=== PATIENT | female | born 1955 | race Caucasian/White ===

== ENCOUNTER 2019-04-25 16:45 | Emergency (ER) | payer BC ==
[~2019-04-25] VITALS: Ht 162.6 cm; Wt 70.8 kg
[2019-04-25] MEDS ORDERED: [UNRECOGNIZED DRUG - REMARK] (16:58)
[2019-04-25] MEDS ORDERED: DULO60CA45 PO (16:59)
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
[2019-04-25] MEDS ORDERED: IBUPROFEN 800 MG TABLET PO ONE (17:45)
[2019-04-25] MEDS ORDERED: IBUPROFEN 800 MG TABLET ONE (17:51)
--- NOTE | 2019-04-25 19:06 | NUR ---
SHIFT REPORT GIVEN TO LATISHA Cuellar RN.
--- NOTE | 2019-04-25 19:58 | NUR ---
Called [facility], spoke with Misty, for possible transfer for higher level of care. Faxed information to number .
--- NOTE | 2019-04-25 20:06 | NUR ---
Called Dr. Mayorga's office, left a voicemail.
--- NOTE | 2019-04-25 20:14 | NUR ---
Received call from [facility]. Patient accepted for transfer. Accepting MD Dr. Chadwick.
--- NOTE | 2019-04-25 20:23 | NUR ---
Called [facility] for transport of patient to [facility] for higher level of care. ETA 1 hr ~2022.
--- NOTE | 2019-04-25 22:02 | NUR ---
[facility] arrived to ER to transport pt to [facility]. Report and documentation given to EMT.
--- NOTE | 2019-04-25 22:14 | NUR ---
Report given to Alonso CHRISTIANSON [facility].
== END 2019-04-25 22:16 | disposition short-term general hospital (02) ==
LOC: ER 16:45
DX: S12.400A Unspecified displaced fracture of fifth cervical vertebra, initial encounter for closed fracture (principal); S39.012A Strain of muscle, fascia and tendon of lower back, initial encounter; Z79.899 Other long term (current) drug therapy; V49.9XXA Car occupant (driver) (passenger) injured in unspecified traffic accident, initial encounter; Y93.89 Activity, other specified; Y92.410 Unspecified street and highway as the place of occurrence of the external cause; Y99.8 Other external cause status
CPT/HCPCS: 72125; 72131; A4663

== ENCOUNTER 2022-05-29 14:44 | Inpatient (IN) | payer MEDICARE, BC ==
[~2022-05-29] VITALS: Ht 162.6 cm; Wt 78.9 kg
[~2022-05-29 14:44] MED LIST: DULO60CA45 PO; [UNRECOGNIZED DRUG - REMARK]
--- NOTE | 2022-05-29 14:59 | NUR ---
MD at bedside for evaluation
[2022-05-29] MEDS ORDERED: IV NORMAL SALINE 500 ML BAG IV ONE (15:15)
[2022-05-29 15:35] LABS: HEMATOCRIT 38.6 % (31.2-41.9); MEAN CORPUSCULAR HEMOGLOBIN 30.7 uug (24.7-32.8); MEAN CORPUSCULAR VOLUME 94.3 fL (75.5-95.3); PLATELET COUNT (AUTO) 261 K/uL (179-408)
[2022-05-29 15:42] LABS: CARBON DIOXIDE 30 mmol/L (21-32); CHLORIDE 106 mmol/L (98-107); CREATININE 0.9 mg/dL (0.6-1.3); GLUCOSE 121 mg/dL (74-106); UREA NITROGEN, BLOOD 12 mg/dL (7-18)
[2022-05-29 15:53] LABS: ALANINE AMINOTRANSFERASE 28 U/L (14-59); ALKALINE PHOSPHATASE 61 U/L (50-136); ASPARTATE AMINOTRANSFERASE 14 U/L (15-37); BILIRUBIN,DIRECT 0.2 mg/dL (0.0-0.2); BILIRUBIN,TOTAL 0.9 mg/dL (0.2-1.0); LIPASE 71 U/L (73-393); TOTAL PROTEIN, SERUM 6.4 g/dL (6.4-8.2)
[2022-05-29] MEDS ORDERED: POTASSIUM CHLORIDE 20 MEQ TAB.PRT.SR PO ONE (16:30)
[2022-05-29] MEDS ORDERED: POTASSIUM CHLORIDE 20 MEQ TAB.PRT.SR ONE (16:41)
[2022-05-29] MEDS ORDERED: IV NS 1000 ML 1,000 ML IV ONE (16:45)
[2022-05-29] MEDS ORDERED: ACETAMINOPHEN 325 MG TABLET PO PRN (17:15)
[2022-05-29] MEDS ORDERED: MAGNESIUM HYDROXIDE 30 ML LIQUID UDC PO PRN (17:15)
[2022-05-29] MEDS ORDERED: ONDANSETRON 4 MG/2 ML VIAL IV PRN (17:15)
--- NOTE | 2022-05-29 19:20 | NUR ---
Transfered to 3rd floor via wheelchair by nursing pressroom supervisor to Tele floor.
--- NOTE | 2022-05-29 20:00 | NUR ---
Admitted a 66 years old patient with Dx of Syncope. Patient AAOx4. In no apparent distress. Denies any pain or SOB. IV site on right AC was irritating patient and requesting to get a new IV. New IV started on right wrist area #22G. NSR on tele with HR of 80/min. Routine admission care done. Plan of care initiated. Safety measure initiated and geoff light within reached.
[2022-05-29] MEDS: IV NS 1000 ML 1,000 ML IV PRN (20:21)
[2022-05-29 20:41] VITALS: BP 141/78
--- NOTE | 2022-05-30 00:04 | NUR ---
Patient requesting medication for sleep. Patient takes Xanax at home but forgot what dose she takes. Informed Dr. Johnson and ordered Trazodone 100mg PO at HS for sleep. Order noted and will carry out.
[2022-05-30 00:13] VITALS: BP 118/68
[2022-05-30] MEDS ORDERED: TRAZODONE 100 MG TABLET PO SCH (00:15)
--- NOTE | 2022-05-30 05:20 | NUR ---
patient slept well after taking Trazodone 100mg PO. Denies any pain or SOB. IV site on right wrist area intact and patent. IVF infusing. Denies any syncopal or fainting episode. Assisted to toilet PRN. NSR on tele with HR of 66/min. Needs attended to and met. Safety measure maintained and call light within reached.
[2022-05-30 05:34] VITALS: BP 124/69
[2022-05-30 05:51] LABS: HEMATOCRIT 34.9 % (31.2-41.9); MEAN CORPUSCULAR HEMOGLOBIN 31.5 uug (24.7-32.8); MEAN CORPUSCULAR VOLUME 93.6 fL (75.5-95.3); PLATELET COUNT (AUTO) 196 K/uL (179-408)
[2022-05-30 06:04] LABS: CREATININE 0.8 mg/dL (0.6-1.3); MAGNESIUM 1.8 mg/dL (1.8-2.4); PHOSPHOROUS 3.6 mg/dL (2.5-4.9)
[2022-05-30 07:00] VITALS: BP 124/69
--- NOTE | 2022-05-30 07:45 | NUR ---
RECEIVED P[ATIENT IN BED AWAKE ALERT AND ORIENTED DENIES PAIN OR DISCOMFORTS AT THIS TIME REMAIN ON IVF ORDERED WITH NO S/S OF INFILTERATION ON SITE CALL LIGHTS AND HER PERSONAL BELONGINGS ARE WITHIN EASY REACH AT THIS TIME WILL CONTINUE TO OBSERVE
--- NOTE | 2022-05-30 08:05 | NUR ---
DR HILLS HERE AND SEEN PATIENT WITH NO NEW ORDERS AT THIS TIME
--- NOTE | 2022-05-30 10:05 | NUR ---
SEEN BY THE PHYSICAL THERAPY FOR AMBULATION WITH THE FRONT WHEEL WALKER WITH GOOD ENDURANCE
[2022-05-30] MEDS: IV NS 1000 ML 1,000 ML IV PRN (11:10)
[2022-05-30 12:12] VITALS: BP 118/78
--- NOTE | 2022-05-30 13:00 | NUR ---
PATIENT SEEN BY NATALIYA BANKS DNP WITH ORDER TO DISCHARGE PATIENT HOME TODAY PATIENT AWARE AND STATED THAT HER FRIEND LUI WILL BE ABLE TO PICK HER UP THIS AFTERNOON AWAITING FOR HEALTH SCIENCE SPECIALIST INPUT.
--- NOTE | 2022-05-30 15:25 | NUR ---
PATIENT DISCHARGED PICKED UP BY HER FRIEND LUI IN SATISFACTORY CONDITION WITH DISCHARGE INSTRUCTIONS AND PATIENT INSTRUCTED TO STAY HYDRATED AND TO CALL HER PRIMARY DOCTOR FOR A FOLLOW UP APPOINTMENT WITHIN THE NEXT ONE TO TWO WEEKS AND SHE EXPRESSED UNDERSTANDING.
== END 2022-05-30 15:25 | disposition home or self-care (01) | DRG 641 ==
LOC: ER 14:44 → MEDSURG3 17:28 → TRANSITION 17:45 → TELE3 19:53
PROVIDERS: ADMIT Internal Medicine; ATTEND Nurse Practitioner Acute Care
DX: E86.1 Hypovolemia (principal); I95.1 Orthostatic hypotension; E87.6 Hypokalemia; F32.9 Major depressive disorder, single episode, unspecified; Z20.822 Contact with and (suspected) exposure to COVID-19; Z52.000 Unspecified donor, whole blood
CPT/HCPCS: 36415; 83605; 83690; 83735; 84100; 84484; 85025; 86850; 86900; 86901; 93005; 97161; A4663; G0378; J7040

== ENCOUNTER 2022-09-09 14:16 | Inpatient (IN) | payer MEDICARE, BC ==
[~2022-09-09] VITALS: Ht 162.6 cm; Wt 79.4 kg
--- NOTE | 2022-09-09 14:37 | NUR ---
PT IS IN ROOM #1A. DR VERNNO EVALUATED THE PT.
[2022-09-09 14:45] LABS: HEMATOCRIT 41.7 % (31.2-41.9); MEAN CORPUSCULAR HEMOGLOBIN 29.9 uug (24.7-32.8); MEAN CORPUSCULAR VOLUME 92.3 fL (75.5-95.3); PLATELET COUNT (AUTO) 252 K/uL (179-408)
[2022-09-09] MEDS ORDERED: IV NORMAL SALINE 500 ML BAG IV ONE (14:45)
[2022-09-09 15:04] LABS: CARBON DIOXIDE 30 mmol/L (21-32); CHLORIDE 103 mmol/L (98-107); CREATININE 0.7 mg/dL (0.6-1.3); GLUCOSE 100 mg/dL (74-106); POTASSIUM 3.4 mmol/L (3.5-5.1); UREA NITROGEN, BLOOD 11 mg/dL (7-18)
[2022-09-09] MEDS ORDERED: SWABABLE VALVE TRANSFER SET EA MC ONE (15:53)
[2022-09-09] MEDS ORDERED: IOHEXOL 350 100 ML INFUS..BTL ONE (15:54)
[2022-09-09] MEDS ORDERED: IV NORMAL SALINE 250 ML IV ONE (15:54)
[2022-09-09] MEDS ORDERED: HYDR-3972 PO (16:45)
[2022-09-09] MEDS ORDERED: POTASSIUM CHLORIDE 20 MEQ TAB.PRT.SR PO ONE (17:45)
[2022-09-09] MEDS ORDERED: AZITHROMYCIN 250 MG TABLET PO ONE (18:00)
[2022-09-09] MEDS ORDERED: AMOXICILLIN-CLAVUL 875-125MG TABLET PO ONE (18:00)
[2022-09-09] MEDS ORDERED: AMOXICILLIN-CLAVUL 875-125MG TABLET ONE (18:07)
[2022-09-09] MEDS ORDERED: AZITHROMYCIN 250 MG TABLET ONE (18:08)
[2022-09-09] MEDS ORDERED: ONDANSETRON 4 MG/2 ML VIAL IV ONE (18:15)
[2022-09-09] MEDS ORDERED: ACETAMINOPHEN 325 MG TABLET PO PRN (20:30)
[2022-09-09] MEDS ORDERED: MAGNESIUM HYDROXIDE 30 ML LIQUID UDC PO PRN (20:30)
[2022-09-09] MEDS ORDERED: ONDANSETRON 4 MG/2 ML VIAL IV PRN (20:30)
--- NOTE | 2022-09-09 20:45 | NUR ---
Endorsed to Guillermina CHRISTIANSON, transferred to RM 329. VSS.
[2022-09-09 20:55] LABS: *BILIRUBIN,URIN NEGATIVE (NEGATIVE); *BLOOD, URINE NEGATIVE (NEGATIVE); *CLARITY,URINE CLEAR (CLEAR); *COLOR,URINE YELLOW (YELLOW); *KETONES,URINE NEGATIVE (NEGATIVE); *UROBILINOGEN,URINE 0.2 E.U./dl (NORMAL); LEUKOCYTE ESTERASE ,URINE NEGATIVE (NEGATIVE); NITRITE, URINE NEGATIVE (NEGATIVE); UGLUCOSE NEGATIVE (NEGATIVE)
[2022-09-09 21:01] VITALS: BP 137/78
[2022-09-09] MEDS: TEMAZEPAM 15 MG CAPSULE PO PRN (21:27)
[2022-09-09] MEDS: HYDROCODONE/APAP 5-325MG TABLET PO PRN (21:27)
[2022-09-10] VITALS: BP 130/62
[2022-09-10 04:00] VITALS: BP 125/62
[2022-09-10] MEDS: PANTOPRAZOLE SODIUM 40 MG TABLET.DR PO SCH (06:45)
[2022-09-10] MEDS: HYDROCODONE/APAP 5-325MG TABLET PO PRN ×2 (06:58→21:44)
--- NOTE | 2022-09-10 07:20 | NUR ---
No episodes of syncope during the night. Ambulate to br, medicated at 0700 with narco
--- NOTE | 2022-09-10 07:30 | NUR ---
Recieved pt. Pt is A&Ox4. Reassessed [place]. Pt's pain is 0/10. Pt's HR is in 70's. Sinus Rhythm. Room Air. Will continue to monitor.
[2022-09-10 07:44] LABS: HEMATOCRIT 39.2 % (31.2-41.9); MEAN CORPUSCULAR HEMOGLOBIN 30.8 uug (24.7-32.8); MEAN CORPUSCULAR VOLUME 92.8 fL (75.5-95.3); PLATELET COUNT (AUTO) 240 K/uL (179-408)
[2022-09-10 08:33] LABS: ALANINE AMINOTRANSFERASE 42 U/L (14-59); ALKALINE PHOSPHATASE 71 U/L (50-136); ASPARTATE AMINOTRANSFERASE 26 U/L (15-37); BILIRUBIN,TOTAL 0.5 mg/dL (0.2-1.0); CARBON DIOXIDE 28 mmol/L (21-32); CHLORIDE 107 mmol/L (98-107); CHOLESTEROL 191 mg/dL (<200); CREATININE 0.7 mg/dL (0.6-1.3); GLUCOSE 93 mg/dL (74-106); HDL CHOLESTEROL 58 mg/dL (40-60); PHOSPHOROUS 4.4 mg/dL (2.5-4.9); POTASSIUM 4.2 mmol/L (3.5-5.1); TRIGLYCERIDES 121 MG/DL (30-150); UREA NITROGEN, BLOOD 10 mg/dL (7-18)
[2022-09-10] MEDS: DULOXETINE 60 MG CAPSULE.DR PO SCH (08:38)
--- NOTE | 2022-09-10 10:55 | NUR ---
DURING ROUNDING NOTED PATIENT DEPRESSED AND CRYING WHEN ASKED WHAT WAS GOING ON STATED THAT SHE HAS NAUSEA AND DID NO FEEL GOOD WAS UNABLE TO FULLY EXPRESS SELF BUT SAID SHE FEELS HOT TEMP AT THIS TIME IS 97.7 ZOFRAN GIVEN FOR HER NAUSEA PATIENT REASSURED MADE COMFORTABLE ENCOURAGED TO VERBALISE FEELINGS AT ALL TIMES AND WILL CONTINUE TO OBSERVE.
[2022-09-10 11:42] VITALS: BP 139/79
[2022-09-10 12:41] VITALS: BP 139/79
[2022-09-10] MEDS ORDERED: OMEP40CA21 PO (14:18)
[2022-09-10] MEDS ORDERED: TRAZ-182 PO (14:18)
[2022-09-10] MEDS ORDERED: FAMO40TA71 PO (14:18)
[2022-09-10 16:43] VITALS: BP 144/68
--- NOTE | 2022-09-10 18:00 | NUR ---
RESTING WELL IN BED ULTRA SOUND CAROTID AND TYROID COMPLETED ORDERED.ECHO IS 55-60 PERCENT EF NOT IN DISTRESS AT THIS TIME.
[2022-09-10 20:00] VITALS: BP 108/59
[2022-09-10] MEDS ORDERED: ATORVASTATIN 10 MG TABLET PO SCH (21:00)
[2022-09-10] MEDS ORDERED: TRAZODONE 50 MG TABLET PO SCH (21:00)
[2022-09-10] MEDS: TEMAZEPAM 15 MG CAPSULE PO PRN (21:43)
[2022-09-11] VITALS: BP 111/64
[2022-09-11 04:00] VITALS: BP 131/84
[2022-09-11] MEDS: PANTOPRAZOLE SODIUM 40 MG TABLET.DR PO SCH (06:53)
[2022-09-11] MEDS: DULOXETINE 60 MG CAPSULE.DR PO SCH (09:32)
[2022-09-11 11:55] VITALS: BP 117/68
[2022-09-11] MEDS: HYDROCODONE/APAP 5-325MG TABLET PO PRN (13:29)
[2022-09-11] MEDS ORDERED: ATOR10TA PO (14:31)
[2022-09-11 14:43] VITALS: BP 131/92
[2022-09-11 15:55] VITALS: BP 125/73
--- NOTE | 2022-09-11 20:00 | NUR ---
Patient discharge home, picked up by daughter via private car, gave discharge papers and instructions, took all belongings. Patient alert oriented, r arm with sling, patient fair but stable condition.
== END 2022-09-11 20:00 | disposition home or self-care (01) | DRG 101 ==
LOC: ER 14:21 → TELE3 18:40
PROVIDERS: ADMIT Internal Medicine; ATTEND Internal Medicine
DX: R56.9 Unspecified convulsions (principal); R55 Syncope and collapse; E04.2 Nontoxic multinodular goiter; E66.9 Obesity, unspecified; M19.90 Unspecified osteoarthritis, unspecified site; M81.0 Age-related osteoporosis without current pathological fracture; Z20.822 Contact with and (suspected) exposure to COVID-19; Z98.890 Other specified postprocedural states; F32.A Depression, unspecified; Z68.30 Body mass index [BMI] 30.0-30.9, adult
CPT/HCPCS: 36415; 70450; 71045; 71275; 83735; 84100; 84443; 84484; 85025; 87086; 93005; 93307; 93880; A4663; G0378; J2405; J7040; Q0144; Q9967